=== PATIENT | male | born 1990 | race American Indian/Alaskan Native ===

== ENCOUNTER 2019-05-08 10:47 | Day surgery (SDC) | payer BC ==
[~2019-05-08 10:47] MED LIST: SODIUM CHLORIDE 0.9% IRR 1,500 ML BOTTLE IR ONE; ceFAZolin/Water 2 GM/20 ML 2 GM/20 ML SYRINGE IV NR
[2019-05-08] MEDS ORDERED: LACTATED RINGERS 1,000 ML IV SCH (11:00)
[2019-05-08] MEDS ORDERED: HYDROmorphone 1 MG/1 ML INJ IV PRN (12:15)
--- NOTE | 2019-05-08 12:15 | Anesthesia Consultation ---
Anesthesia Consult and Med Hx Date of service: 05/08/19 - Airway Anesthetic Teeth Evaluation: Good ROM Head & Neck: Adequate Mental/Hyoid Distance: Adequate Mallampati Class: Class I Intubation Access Assessment: Good (full salvador -> potential difficult mask) - Pulmonary Exam CTA: Yes - Cardiac Exam Cardiac Exam: RRR - Pre-Operative Health Status ASA Pre-Surgery Classification: ASA1 Proposed Anesthetic Plan: General - Pulmonary Hx Smoking: No - Cardiovascular System Hx Hypertension: No - Central Nervous System CVA: No - Gastrointestinal Hx Gastroesophageal Reflux Disease: No - Endocrine Hx Renal Disease: No Hx Liver Disease: No Hx Insulin Dependent Diabetes: No Hx Non-Insulin Dependent Diabetes: No Hx Thyroid Disease: No - Other Systems Hx Obesity: Yes (BMI 34)
--- NOTE | 2019-05-08 12:15 | Anesthesia Day of Surgery ---
Anesthesia Day of Surgery - Day of Surgery Patient Examined: Yes Patient H&P Reviewed: Yes Patient is NPO: Yes
[2019-05-08] MEDS ORDERED: MIDAZOLAM 2 MG/2 ML INJ IV NR (13:00)
[2019-05-08] MEDS ORDERED: HYDROmorphone 1 MG/1 ML INJ ONE (13:18)
[2019-05-08] MEDS ORDERED: PROPOFOL 200 MG/20 ML VIAL IV ONE (13:19)
[2019-05-08] MEDS ORDERED: SODIUM CHLORIDE 0.9% IRR 1,500 ML BOTTLE IR ONE (14:07)
[2019-05-08] MEDS ORDERED: LIDOCAINE MPF (2%) 20 MG/1 ML VIAL 5 ML ONE (14:09)
[2019-05-08] MEDS ORDERED: ONDANSETRON 4 MG/2 ML INJ ONE (14:11)
[2019-05-08] MEDS ORDERED: dexAMETHasone 20 MG/5 ML VIAL ONE (14:11)
[2019-05-08] MEDS ORDERED: LACTATED RINGERS 1,000 ML ONE (14:15)
--- NOTE | 2019-05-08 14:19 | Short Stay Summary ---
Short Stay Documentation Date of service: 05/08/19 Narrative H&P: 28yr old male with phimosis despite medical mgmt - History Past Medical History: No medical history Past Surgical History: No surgical history Social history: no significant social history, single - Allergies and Medications Current Medications: Allergies No Known Allergies Allergy (Verified 05/02/19 15:22) Home Medications Medication Instructions Recorded Confirmed Last Taken Type No Known Home Medications [No 05/02/19 05/02/19 Unknown History Reported Home Medications] Active Medications Hydromorphone HCl (Dilaudid) 0.5 mg IV Q10MIN PRN PRN Reason: Pain , Severe (7-10) Stop: 05/08/19 23:00 Cefazolin Sodium (Ancef/Sterile Water 2 Gm/20 Ml) 2 gm in 20 mls @ 80 mls/hr IV PREOP NR; Protocol Stop: 05/08/19 23:59 Lactated Ringer's (Lactated Ringers) 1,000 mls @ 100 mls/hr IV DIRECT SHELBY Last Admin: 05/08/19 11:35 Dose: 100 mls/hr Documented by: Midazolam HCl (Versed) 2 mg IV PREOP NR Stop: 05/08/19 23:59 - Physical exam General appearance: no acute distress, well-nourished Integumentary: no rash, no growths HEENT: Atraumatic, PERRLA, EOMI Lungs: Clear to auscultation Breasts: normal Heart: Regular rate, No murmurs Gastrointestinal: normoactive bowel sounds Male Genitourinary: tender Rectal Exam: deferred Extremities: no ischemia, No edema Neurological: Normal gait - Brief post op/procedure progress note Date of procedure: 05/08/19 Pre-op diagnosis: phimosis Post-op diagnosis: same Procedure: circ Anesthesia: GETA Surgeon: ILANA ALMENDAREZ Estimated blood loss: minimal Pathology: list (foreskin) Specimen disposition: to lab Condition: stable - Hospital course Hospital course: [facility] norco on chart - Disposition Condition at discharge: Stable Disposition: DC-01 TO HOME OR SELFCARE Short Stay Discharge Plan Follow up with: ANDRE MACEDO MD [Primary Care Provider] - 7 Days
--- NOTE | 2019-05-08 14:30 | Operative Report ---
PREOPERATIVE DIAGNOSIS: Phimosis. POSTOPERATIVE DIAGNOSIS: Phimosis. PROCEDURE: Circumcision. SURGEON: Aj Hart MD ANESTHESIA: General. ESTIMATED BLOOD LOSS: Minimal. FLUIDS: Crystalloid. COMPLICATIONS: No complications. INDICATIONS: This 28-year-old gentleman seen in the office with refractory phimosis despite medical management. The patient has been unable to retract his foreskin for an undisclosed amount of time. Discussed options. He agreed to proceed with surgical intervention. DESCRIPTION OF PROCEDURE: The patient was taken to the operative suite, placed in a supine position. After adequate general anesthesia, he was prepped and draped in a sterile fashion. The foreskin was marked at the level of the coronal ridge. I was unable to retract the foreskin. A dorsal slit was made and the glans penis was then exposed. Betadine was then used on the glans penis. Dorsal and ventral slit was made. The foreskin was circumferentially removed and sent for routine pathologic evaluation. Shaft skin was retracted proximally. Adequate hemostasis was achieved. The proximal and distal shaft skin was reapproximated and closed with 2-0 chromic in interrupted fashion. The patient tolerated the procedure well. Xeroform gauze around the incision as well as Coban. The patient tolerated the procedure well and was extubated and taken to recovery room. He will go home on [facility] [place] and follow up in the office. JOB# [id number] Oumar/[place]
[2019-05-08] MEDS ORDERED: HYDROcodone/ACETAMINOPHEN 5-325 MG TAB PO PRN (14:50)
[2019-05-08] MEDS ORDERED: HYDROcodone/ACETAMINOPHEN 5-325 MG TAB ONE (14:54)
[2019-05-08 15:44] VITALS: BP 128/82
== END 2019-05-08 16:20 | disposition home or self-care (01) ==
LOC: OR 10:47
PROVIDERS: ATTEND Urology
DX: N47.1 Phimosis (principal); E66.9 Obesity, unspecified; Z68.34 Body mass index [BMI] 34.0-34.9, adult; Z80.8 Family history of malignant neoplasm of other organs or systems
CPT/HCPCS: 54161; 88304; J0690; J1100; J1170; J2405; J2704; J7120